=== PATIENT | male | born 1985 | race Caucasian/White ===

== ENCOUNTER → 2018-06-14 | Outpatient (REF) | payer OTHER | LOC: M SFHCLERA 11:12 | PROVIDERS: ATTEND Nurse Practitioner Family | DX: J01.10 Acute frontal sinusitis, unspecified (principal); R53.81 Other malaise ==

== ENCOUNTER → 2021-07-02 | Outpatient (CLI) | payer OTHER ==
[2021-07-02 09:59] LABS: PLATELET COUNT, AUTOMATED 241 10^3/uL (150-450)
[2021-07-02 10:12] LABS: INR 0.94
[2021-07-02 10:13] LABS: PARTIAL THROMBOPLASTIN TIME 27.8 SECONDS (25.9-37.0)
== END ==
LOC: M LAB 09:03
PROVIDERS: ATTEND Physical Medicine & Rehabilitation
DX: M51.36 Other intervertebral disc degeneration, lumbar region (principal)

== ENCOUNTER 2021-11-17 08:58 | Emergency (ER) | payer OTHER ==
[~2021-11-17] VITALS: Ht 190.5 cm; Wt 130.4 kg
[2021-11-17] MEDS ORDERED: GABA-282 (09:17)
[2021-11-17] MEDS ORDERED: IBUP200T46 PO (09:17)
[2021-11-17] MEDS ORDERED: FLUO20CA22 (09:17)
[2021-11-17] MEDS ORDERED: GABAPENTIN 300 MG CAP PO ONE (12:05)
[2021-11-17] MEDS ORDERED: LIDOCAINE 5% (LIDODERM) PATCH TD ONE (12:05)
[2021-11-17] MEDS ORDERED: NORCO, ANEXSIA 5/325MG TABLET (HYDROcodone/ACETAMINOPHEN) PO ONE (12:05)
[2021-11-17] MEDS ORDERED: methocarbamoL 750 MG TAB PO ONE (12:05)
[2021-11-17] MEDS ORDERED: METH-1165 PO (14:13)
[2021-11-17] MEDS ORDERED: HYDR-3713 PO (14:13)
[2021-11-17] MEDS ORDERED: LIDO5DIS41 TD (14:13)
[2021-11-17] MEDS ORDERED: NEUR600T PO (14:13)
[2021-11-17 14:23] VITALS: BP 137/86
[2021-11-18] MEDS ORDERED: **NOTE PATIENT COMMENT** MISC XX ONE
== END 2021-11-17 14:24 | disposition home or self-care (01) ==
LOC: M ED 08:58
DX: M54.42 Lumbago with sciatica, left side (principal); F32.A Depression, unspecified; Z79.899 Other long term (current) drug therapy

== ENCOUNTER 2021-12-15 08:55 | Emergency (ER) | payer OTHER ==
[~2021-12-15] VITALS: Ht 190.5 cm; Wt 129.7 kg
[2021-12-15 08:57] VITALS: BP 138/85
== END 2021-12-15 09:34 | disposition left against medical advice (07) ==
LOC: M ED 08:55
DX: Z53.29 Procedure and treatment not carried out because of patient's decision for other reasons (principal)

== ENCOUNTER → 2021-12-15 | Outpatient (CLI) | payer OTHER ==
[~2021-12-15] MED LIST: FLUO20CA22; GABA-282; HYDR-3713 PO; IBUP200T46 PO; LIDO5DIS41 TD; METH-1165 PO; NEUR600T PO
[2021-12-15 15:22] LABS: BASO % 0.5 % (0.0-1.0); EOS # 0.1 10^3/uL (0.0-0.5); EOS % 1.2 % (0.0-3.0); HEMATOCRIT 43.4 % (42.0-52.0); HEMOGLOBIN 14.8 g/dl (13.5-17.5); LYMPH % 33.2 % (24.0-44.0); MEAN CORPUSCULAR HEMOGLOBIN 30.6 pg (27.0-33.0); MEAN CORPUSCULAR HGB CONC 34.1 g/dl (32.0-36.5); MEAN CORPUSCULAR VOLUME 89.7 fl (80.0-96.0); MONO # 1.1 10^3/uL (0.0-0.8); MONO % 18.6 % (2.0-8.0); NEUTROPHILS # 2.7 10^3/uL (1.5-8.5); NEUTROPHILS % 46.2 % (36.0-66.0); PLATELET COUNT, AUTOMATED 269 10^3/uL (150-450); RED BLOOD COUNT 4.84 10^6/uL (4.30-6.10); WHITE BLOOD COUNT 5.9 10^3/uL (4.0-10.0)
[2021-12-15 16:11] LABS: ERYTHROCYTE SEDIMENTATION RATE 17 mm/hr (0-15)
== END ==
LOC: M PLALAB 12:27
PROVIDERS: ATTEND Orthopaedic Surgery
DX: Z47.89 Encounter for other orthopedic aftercare (principal)

== ENCOUNTER → 2022-08-25 | Outpatient (CLI) | payer OTHER ==
[2022-08-25 11:11] LABS: PLATELET COUNT, AUTOMATED 247 10^3/uL (150-450)
[2022-08-25 11:20] LABS: INR 0.9; PROTHROMBIN TIME 12.3 SECONDS (12.5-14.5)
[2022-08-25 11:21] LABS: PARTIAL THROMBOPLASTIN TIME 28.9 SECONDS (24.8-34.2)
== END ==
LOC: M PLALAB 08:50
PROVIDERS: ATTEND Physical Medicine & Rehabilitation
DX: Z01.818 Encounter for other preprocedural examination (principal); Z79.899 Other long term (current) drug therapy